=== PATIENT | male | born 1985 | race Caucasian/White ===

== ENCOUNTER 2022-09-29 06:52 | Day surgery (SDC) | payer OTHER, SELFPAY ==
[2022-09-14 13:46] VITALS: BMI 23.3
[2022-09-29 07:17] VITALS: BP 129/90; PULSE 81; RESP 16; TEMP 36.7; O2SAT 100; BMI 23.0
--- NOTE | 2022-09-29 07:45 | P.PNAN_ITS ---
Anes - Initial Pre Proc Eval Procedure: Operation Date: 09/29/22 08:30 Proposed Procedures p Excision Subcutaneous Mass Left Submandibular Neck - Juancarlos James MD Date/Time: 09/29/22 07:45 Surgeon: Juancarlos James MD Pre Op Diagnosis: Subcutaneous Mass Left Submandibular Neck Patient Data Age: 37 Gender: M Height: 1.78 m Weight: 72.9 kg Last Vital Signs Temp 36.7 C 09/29/22 07:17 Pulse 81 09/29/22 07:17 Resp 16 09/29/22 07:17 BP 129/90 09/29/22 07:17 Pulse Ox 100 09/29/22 07:17 O2 Del Method Room Air 09/29/22 07:17 Allergies Allergy/AdvReac Type Severity Reaction Status Date / Time No Known Allergies Allergy Verified 09/29/22 07:12 Home Medications Medication Instructions Recorded Confirmed Type dextroamphetamine-amphetamine 30 30 mg PO BID 09/14/22 09/29/22 History mg tablet lisinopril 40 mg tablet 40 mg PO DAILY 09/14/22 09/29/22 History Patient hx anesthesia problems: none Family hx anesthesia problems: none Results Review: All pre-operative results and documents have been reviewed as part of the pre- operative evaluation. [facility] Social History Social History Smoking status: Never smoker Alcohol intake: current Alcohol use details: socially Substance use: never Substance use type: does not use Living arrangements: with family Spiritual care concerns: No Anes - Eval Final PreProcedure Day of Procedure 09/29/22 07:45 Patient weight: normal Heart: regular rate and rhythm Lungs: clear to auscultation Airway: Mallampati scale class 1 Neurological: alert and oriented Last oral intake: >/= 8 hours ASA classification: II Emergent: no Anesthetic plan: proceed Anesthesia type and monitoring: general GIVS and standard monitoring Results Review: All pre-operative results and documents have been reviewed as part of the pre- operative evaluation. Informed Consent: The patient's anesthetic plan and its attendant risks and benefits were discussed with the patient/family/POA. Questions were solicited and answers provided to the satisfaction of the patient/family/POA.
[2022-09-29] MEDS: LACTATED RINGERS 1,000 ML 30 ML IV CONT (07:54)
--- NOTE | 2022-09-29 08:31 | WPDHPUPDATE1 ---
History and Physical Update Update Date/Time: 09/29/22 08:31 History and Physical has been reviewed, including an updated exam of the patient. There are NO changes in the patient's condition. Risks, benefits, and alternatives have been discussed and questions answered. Patient agrees to proceed with procedure.
[2022-09-29] MEDS: LIDO 1%/EPINEPHRINE 1:100,000 50 ML VIAL 6 ML INFILTRATE (09:10)
[2022-09-29 09:18] VITALS: BP 107/73; PULSE 90; RESP 16; O2SAT 99
--- NOTE | 2022-09-29 09:28 | W.PM.PROC2 ---
Procedure Note - Detailed Date of Procedure 09/29/22 Pre-op Diagnosis Subcutaneous Mass Left Submandibular Neck Post-op Diagnosis Same Procedure Performed Excision 2 cm sebaceous cyst in the left submandibular neck with simple repair 2 cm Surgeon Juancarlos James MD Anesthesia MAC Description of Procedure the site was marked on the patient in the holding area discernible. He was taken to the Operating room and placed supine on operating table. He was given IV sedation. The lower face upper neck area was prepped and draped in usual fashion. The site was easily exposed. The area was marked for the incision and locally infiltrated with 1% lidocaine with epinephrine. That point the punctum was quite was a bowl under tension. The transverse ellipse was incised and the cyst identified and easily removed with mostly blunt dissection. The wound was closed with the interrupted 4-0 Monocryl sutures. A small gauze bandage was applied. No prescriptions were written for postop pain. Estimated Blood Loss 1 Drains No Packing No Pathology None sent Complications No immediate complications Condition Stable Disposition Same day
[2022-09-29 09:45] VITALS: BP 106/72; PULSE 88; RESP 18; O2SAT 99
[2022-09-29 09:55] VITALS: BP 110/76; PULSE 80; RESP 18; O2SAT 99
--- NOTE | 2022-09-29 09:55 | WPDANESPN ---
Anes - Prog Note Post-Op Date/Time: 09/29/22 09:55 Cardiovascular status: normal Respiratory status: normal Airway patency: baseline Mental status: baseline Post-Op hydration status: normal Vital Signs: Last Vital Signs Temp 36.7 C 09/29/22 07:17 Pulse 88 09/29/22 09:45 Resp 18 09/29/22 09:45 BP 106/72 09/29/22 09:45 Pulse Ox 99 09/29/22 09:45 O2 Del Method Room Air 09/29/22 09:45 Pain Score (VAS): 0 I/O: Intake & Output 09/28/22 09/29/22 09/29/22 23:59 07:59 15:59 Intake Total 800 Balance 800 Patient Feedback: Patient satisfied with anesthetic care.
== END 2022-09-29 10:04 | disposition home or self-care (01) ==
PROVIDERS: PCP Family Medicine; Visit Provider Plastic Surgery
PROC: (CPT 21555; principal; 2022-09-29 08:30)
DX: L72.3 Sebaceous cyst (principal)
CPT/HCPCS: 21555